=== PATIENT | female | born 1975 | race Caucasian/White ===

== ENCOUNTER 2017-12-23 12:40 | Emergency (ER) | payer BC, MEDICARE ==
[~2017-12-23] VITALS: Ht 162.6 cm; Wt 54.7 kg
[2017-12-23 14:47] LABS: CLARITY,URINE CLEAR (Clear); COLOR,URINE YELLOW (Yellow); GLUCOSE, URINE NEGATIVE (Neg); KETONES,URINE NEGATIVE (Neg); LEUKOCYTE ESTERASE ,URINE SMALL (Neg); NITRITES, URINE NEGATIVE (Neg); OCCULT BLOOD,URINE NEGATIVE (Neg); PH,URINE 6.5 (4.8-8.0); PROTEIN,URINE NEGATIVE (Neg); UROBILINOGEN,URINE 0.2 E.U/dL (0.2-1.0)
[2017-12-23 14:52] LABS: BASOPHILS % (AUTO) 0.1 % (0-1); EOSINOPHILS % (AUTO) 0.2 % (0-6); HEMATOCRIT 40.2 % (35.0-45.0); HEMOGLOBIN 13.9 g/dl (12.0-16.0); LYMPHOCYTES # (AUTO) 1.2 X10'3 (1.1-4.8); LYMPHOCYTES % (AUTO) 13.9 % (21-51); MEAN CORPUSCULAR HEMOGLOBIN 29.9 PG (27.0-31.0); MEAN CORPUSCULAR HGB CONC 34.7 % (33.0-36.5); MEAN CORPUSCULAR VOLUME 86.4 FL (78-98); MEAN PLATELET VOLUME 9.3 FL (7.4-10.4); MONOCYTES # (AUTO) 0.8 X10'3 (0-0.9); MONOCYTES % (AUTO) 9.2 % (2-12); NEUTROPHILS # (AUTO) 6.8 X10'3 (1.8-7.7); NEUTROPHILS % (AUTO) 76.6 % (42-75); PLATELET COUNT 193 X10'3 (140-440); RED BLOOD COUNT 4.66 X10'6 (4.20-5.60); RED CELL DISTRIBUTION WIDTH 12.9 % (11.5-14.5); WHITE BLOOD COUNT 8.9 X10'3 (4.5-11.0)
[2017-12-23 15:05] LABS: UA COLLECTION TYPE CLN CATCH MIDSTREAM
[2017-12-23 15:06] LABS: SQUAMOUS EPITHELIAL CELL,UR MODERATE /LPF (FEW)
[2017-12-23 15:07] LABS: BACTERIA,URINE 1+ /HPF (Neg); RBC,URINE 0-2 /HPF (0-2)
[2017-12-23 15:19] LABS: ALANINE AMINOTRANSFERASE 39 U/L (12-78); ALBUMIN/GLOBULIN RATIO 0.9 (1.1-1.5); ALKALINE PHOSPHATASE 98 IU/L (46-116); ANION GAP 12 (8-16); ASPARTATE AMINO TRANSFERASE 18 U/L (10-37); BLOOD UREA NITROGEN 7 MG/DL (7-18); BUN/CREATININE RATIO 8.9 (6.6-38.0); CALCIUM 9.6 MG/DL (8.5-10.1); CHLORIDE 101 MMOL/L (99-107); CREATININE 0.79 MG/DL (0.40-0.90); GLUCOSE 102 MG/DL (70-104); SODIUM 140 MMOL/L (135-145); TOTAL CARBON DIOXIDE 27.3 MMOL/L (24-32); TOTAL PROTEIN 8.5 G/DL (6.4-8.2); eGFR 80 ML/MIN
[2017-12-23] MEDS ORDERED: HYDR-3965 PO (15:39)
[2017-12-23] MEDS ORDERED: GUAI10SY2 PO (15:39)
[2017-12-23 15:56] VITALS: BP 90/70
== END 2017-12-23 15:58 | disposition home or self-care (01) ==
LOC: ER 12:41
DX: B34.9 Viral infection, unspecified (principal); R09.1 Pleurisy; I25.10 Atherosclerotic heart disease of native coronary artery without angina pectoris; Z88.8 Allergy status to other drugs, medicaments and biological substances; Z79.899 Other long term (current) drug therapy
CPT/HCPCS: 36415; 71046; 80053; 81001; 83605; 84145; 85025; 87040; 87088; 99285

== ENCOUNTER 2024-02-02 13:23 | Day surgery (SDC) | payer OTHER, MEDICARE ==
[~2024-02-02] VITALS: Ht 162.6 cm; Wt 57.9 kg
[2024-02-02] VITALS (19 sets, daily range): BP systolic 96–134; BP diastolic 63–79; PULSE 55–83; RESP 10–16; TEMP 97.6; O2SAT 92–100
[~2024-02-02 13:23] MED LIST: AMO250C PO
[2024-02-02] MEDS ORDERED: MAGN200T PO (13:45)
[2024-02-02] MEDS: normal saline 1000ml 1,000 ML IV SCH (13:45)
[2024-02-02] MEDS ORDERED: vitamin d3 (13:45)
[2024-02-02] MEDS: MIDAZolam 1mg/ml 10ml vial IV ONE (15:10)
[2024-02-02] MEDS: fentaNYL/PF 50MCG/1 ML 2ML syringe IV ONE (15:10)
== END 2024-02-02 16:20 | disposition home or self-care (01) ==
LOC: SSTAY O 13:23
PROVIDERS: ATTEND Student in an Organized Health Care Education/Training Program
DX: I08.8 Other rheumatic multiple valve diseases (principal); I48.91 Unspecified atrial fibrillation; Z79.899 Other long term (current) drug therapy; Z88.8 Allergy status to other drugs, medicaments and biological substances
CPT/HCPCS: 93312; 93325; J2250; J3010; J7030; A4620

== ENCOUNTER 2024-03-18 11:22 | Outpatient (CLI) | payer OTHER, MEDICARE ==
[~2024-03-18 11:22] MED LIST changes: -AMO250C PO; +MAGN200T PO; +vitamin d3
[2024-03-18 12:11] LABS: BASOPHILS % (AUTO) 0.6 % (0-1); EOSINOPHILS # (AUTO) 0.1 X10'3 (0-0.9); EOSINOPHILS % (AUTO) 2.3 % (0-6); HEMATOCRIT 44.1 % (35.0-45.0); HEMOGLOBIN 14.8 g/dl (12.0-16.0); LYMPHOCYTES # (AUTO) 1.6 X10'3 (1.1-4.8); LYMPHOCYTES % (AUTO) 28.1 % (21-51); MEAN CORPUSCULAR HEMOGLOBIN 29.9 PG (27.0-31.0); MEAN CORPUSCULAR HGB CONC 33.6 g/dL (33.0-36.5); MEAN PLATELET VOLUME 9.6 FL (7.4-10.4); MONOCYTES # (AUTO) 0.4 X10'3 (0-0.9); MONOCYTES % (AUTO) 7.9 % (2-12); NEUTROPHILS # (AUTO) 3.4 X10'3 (1.8-7.7); NEUTROPHILS % (AUTO) 61.1 % (42-75); PLATELET COUNT 173 X10'3 (140-440); RED BLOOD COUNT 4.95 X10'6 (4.20-5.60); RED CELL DISTRIBUTION WIDTH 12.5 % (11.5-14.5); WHITE BLOOD COUNT 5.6 X10'3 (4.5-11.0)
[2024-03-18 12:23] LABS: APTT 27 SECONDS (22-32); PROTHROMBIN TIME 10.9 SECONDS (9.0-12.0)
[2024-03-18 12:30] LABS: ALBUMIN 4.2 G/DL (3.4-5.0); ANION GAP 7 (8-16); BLOOD UREA NITROGEN 12 MG/DL (7-18); BUN/CREATININE RATIO 16.7 (10.0-20.0); CALCIUM 9.2 MG/DL (8.5-10.1); CHLORIDE 101 MMOL/L (99-107); CHOL/HDL RATIO 2.4 (0.00-4.99); CHOLESTEROL 138 MG/DL (0-200); CREATININE 0.72 MG/DL (0.40-0.90); GLUCOSE 89 MG/DL (70-104); HDL CHOLESTEROL 58 MG/DL (35-60); LDL CHOLESTEROL 78 MG/DL (50-100); POTASSIUM 4.1 MMOL/L (3.5-5.1); SODIUM 135 MMOL/L (135-145); TOTAL CARBON DIOXIDE 27.4 MMOL/L (24-32); TRIGLYCERIDES 51 MG/DL (20-135); eGFR 87 ML/MIN
== END 2024-03-18 23:59 | disposition home or self-care (01) ==
LOC: RAD 11:22
PROVIDERS: ATTEND Internal Medicine Interventional Cardiology
DX: Z01.812 Encounter for preprocedural laboratory examination (principal); E78.5 Hyperlipidemia, unspecified; R53.83 Other fatigue
CPT/HCPCS: 36415; 80048; 80061; 85025; 85610; 85730

== ENCOUNTER 2024-03-21 09:39 | Day surgery (SDC) | payer OTHER, MEDICARE ==
[2024-03-21] VITALS (8 sets, daily range): BP systolic 87–97; BP diastolic 56–66; PULSE 53–60; RESP 16; TEMP 97.8; O2SAT 97–99
[~2024-03-21] VITALS: Ht 154.9 cm; Wt 58.1 kg
[2024-03-21] MEDS ORDERED: NIAC500C12 PO (10:47)
[2024-03-21] MEDS ORDERED: HAWT565C (10:47)
[2024-03-21] MEDS ORDERED: MULT-1085 PO (10:47)
[2024-03-21] MEDS ORDERED: [UNRECOGNIZED DRUG - CODE] PO (10:47)
[2024-03-21] MEDS: diphenhydrAMINE 25mg capsule PO PRN (11:11)
[2024-03-21] MEDS: normal saline 1,000 ML IV SCH (11:14)
[2024-03-21] MEDS: LORazepam 0.5 MG tablet PO PRN (11:14)
[2024-03-21] MEDS ORDERED: LIDOcaine 1% (10mg/ml) 2ml vial ONE (12:06)
[2024-03-21] MEDS ORDERED: verapamil 2.5 mg/ml inj IV ONE (12:06)
[2024-03-21] MEDS ORDERED: midazolam 1 mg/ML 2ml injection ONE (12:07)
[2024-03-21] MEDS ORDERED: heparin 1,000unit/ml 10ml vial 10 ML ONE (12:07)
[2024-03-21] MEDS ORDERED: iohexol 350MG/ML 100ml bottle IV ONE (12:07)
[2024-03-21] MEDS ORDERED: fentaNYL/PF 50MCG/1 ML 2ML syringe ONE (12:07)
[2024-03-21] MEDS ORDERED: HYDROcodone/acetaminophen 10/325mg tab PO PRN (14:00)
[2024-03-21] MEDS ORDERED: HYDROcodone/acetaminophen 5mg/325mg tablet PO PRN (14:00)
[2024-03-21 15:32] LABS: ISTAT HGB ART 12.2 g/dl (12.0-16.0); ISTAT Hct ART 36 %PCV (35-45); ISTAT O2 SATURATION ARTERIAL 96 % (95-98); ISTAT SOURCE ART
[2024-03-22 06:28] LABS: ISTAT HGB MIX 12.9 g/dl (12.0-16.0); ISTAT Hct MIX 38 %PCV (35-45); ISTAT O2 SATURATION MIX VENOUS 67 % (60-80); ISTAT SOURCE VEN
== END 2024-03-21 15:25 | disposition home or self-care (01) ==
LOC: SSTAY O 09:39
PROVIDERS: ATTEND Student in an Organized Health Care Education/Training Program
DX: I08.3 Combined rheumatic disorders of mitral, aortic and tricuspid valves (principal); I45.10 Unspecified right bundle-branch block; E78.00 Pure hypercholesterolemia, unspecified; I48.91 Unspecified atrial fibrillation; I27.20 Pulmonary hypertension, unspecified; Z79.899 Other long term (current) drug therapy; Z95.4 Presence of other heart-valve replacement; Z98.890 Other specified postprocedural states; Z88.8 Allergy status to other drugs, medicaments and biological substances
CPT/HCPCS: 82803; 85014; 93005; 93460; 99152; 99153; J1644; J2250; J3010; J3490; J7030; Q0163; Q9967; A6258; A6402; C1751; C1894